=== PATIENT | female | born 1990 | race African-American/Black ===

== ENCOUNTER 2018-02-22 11:12 | Emergency (ER) | payer OTHER ==
[~2018-02-22] VITALS: Ht 149.9 cm; Wt 47.6 kg
[2018-02-22] MEDS ORDERED: IBUPROFEN 800800 M1 PO (12:31)
[2018-02-22] MEDS ORDERED: NORFLEX100 MG PO (12:31)
[2018-02-22 12:55] VITALS: BP 121/76
== END 2018-02-22 13:20 | disposition home or self-care (01) ==
LOC: ER 11:12
DX: S06.0X0A Concussion without loss of consciousness, initial encounter (principal); S16.1XXA Strain of muscle, fascia and tendon at neck level, initial encounter; S29.012A Strain of muscle and tendon of back wall of thorax, initial encounter; S70.11XA Contusion of right thigh, initial encounter; S80.211A Abrasion, right knee, initial encounter; S80.212A Abrasion, left knee, initial encounter; V89.2XXA Person injured in unspecified motor-vehicle accident, traffic, initial encounter; Y92.89 Other specified places as the place of occurrence of the external cause; Y93.89 Activity, other specified; Y99.8 Other external cause status